=== PATIENT | female | born 1970 | race Caucasian/White ===

== ENCOUNTER 2018-05-13 17:32 | Emergency (ER) | payer OTHER ==
[~2018-05-13] VITALS: Ht 152.4 cm; Wt 72.6 kg
[~2018-05-13 17:32] MED LIST: ADDERALL 10 MG10 MG; ADDERALL 10 MG10 MG PO; AMOXICILLIN 50500 M1 PO; BACTRIM DS TAB1 EACH PO; BACTROBAN CREAM30 GM TOP; BUSPAR15 MG PO; CIPROFLOXACIN500 M1 PO; DESYREL100 MG; DOXYCYCLINE 10100 M1 PO; FLAGYL500 MG PO; FLEXERIL PO; KEFLEX500 MG PO; LITHIUM CARBON300 M3 PO; MACROBID 100 M100 M1 PO; NORCO 5-325 TA1 EACH PO; PENICILLIN VK500 MG PO; PYRIDIUM200 MG PO; STRATTERA PO; VISTARIL 25 MG25 M1 PO; VISTARIL50 MG PO; ZOFRAN ODT4 MG PO
[2018-05-13] MEDS ORDERED: EFFEXOR 5050 MG/1 T1 PO (17:38)
[2018-05-13] MEDS ORDERED: LAMICTAL100 MG PO (17:38)
[2018-05-13 17:54] LABS: URINE BLOOD 3+ (Negative); URINE CLARITY SL CLOUDY; URINE COLOR YELLOW; URINE GLUCOSE-RANDOM NEGATIVE (Negative); URINE KETONES TRACE (Negative); URINE NITRITE-REFLEX NEGATIVE (Negative); URINE PROTEIN 1+ (Negative); URINE SPECIFIC GRAVITY >= 1.030 (1.005-1.030)
[2018-05-13 17:57] LABS: URINE BILIRUBIN 1+ (Negative); URINE LEUKOCYTES-REFLEX 2+ (Negative)
[2018-05-13 18:00] LABS: ICTOTEST (BILI CONFIRMATORY) Negative (Negative)
[2018-05-13 18:02] LABS: MUCUS >6 Heavy strn/LPF (None Seen)
[2018-05-13 18:03] LABS: ABSOLUTE BASOPHILS 0.1 thou/uL (0.0-0.2); ABSOLUTE EOSINOPHILS 0.2 thou/uL (0.0-0.7); ABSOLUTE LYMPHOCYTES 2.3 thou/uL (0.8-5.3); ABSOLUTE MONOCYTES 0.6 thou/uL (0.0-1.2); ABSOLUTE NEUTROPHILS 12.8 thou/uL (1.6-8.1); BASOPHILS 0.5 %; EOSINOPHILS 1.4 %; HEMATOCRIT 39.5 % (37.0-47.0); HEMOGLOBIN 13.2 gm/dL (12.0-15.0); LYMPHOCYTES 14.6 %; MCH 28.7 pg (26.0-34.0); MCHC 33.4 g/dL (28.0-37.0); MCV 86.1 fL (80.0-100.0); MONOCYTES 3.6 %; MPV 7.6 fl. (7.2-11.1); NUCLEATED RBCS 0 /100WBC; PLATELET COUNT* 412 thou/uL (150-400); POLYS 79.9 %; RBC 4.59 mil/uL (4.20-5.00); RDW-CV 14.5 % (10.5-14.5)
[2018-05-13 18:03] LABS: SQUAMOUS 4-10 Moderate /LPF (0-3)
[2018-05-13 18:04] LABS: URINE RBC 3-10 Few /HPF (0-2)
[2018-05-13 18:05] LABS: BACTERIA-REFLEX 1-9 Few /HPF (None Seen); CASTS None Seen /LPF (None Seen); CRYSTALS None Seen /LPF (None Seen)
[2018-05-13 18:07] LABS: ANION GAP 9 mmol/L (7-16); BUN 17 mg/dL (7-18); CALCIUM 9.9 mg/dL (8.5-10.1); CHLORIDE 101 mmol/L (98-107); CO2 24 mmol/L (21-32); CREATININE 0.9 mg/dL (0.6-1.3); GLUCOSE 92 mg/dL (70-99); POTASSIUM 3.7 mmol/L (3.5-5.1); SODIUM 134 mmol/L (136-145)
[2018-05-13 18:14] LABS: ALBUMIN 3.7 g/dL (3.4-5.0); ALKALINE PHOSPHATASE 101 U/L (46-116); SGOT 26 U/L (15-37); SGPT 35 U/L (30-65); TOTAL BILIRUBIN 0.9 mg/dL (<0.1-1.0); TOTAL PROTEIN 8.1 g/dL (6.4-8.2); TROPONIN-I LEVEL <0.06 ng/mL (<0.06)
[2018-05-13] MEDS ORDERED: CIPRO500 MG PO (21:09)
[2018-05-13 23:12] VITALS: BP 107/58
--- NOTE | 2018-05-14 16:39 | EKG ---
[place] [address] ELECTROCARDIOGRAM REPORT Name: LIBRA KAN [id number] Admission: 05/13/18 Attend Phys: Discharge: 05/13/18 Date of : 72 Report #: [id number] THIS REPORT FOR: //name// [facility] ED Test Date: 2018-05-13 Test Time: 18:26:47 Pat Name: LIBRA KAN Department: Room: Gender: F Seam Checker: Ravinder MEDRANO : 1970 Requested By: Shannan Florentino Order Number: [id number] MD: Michael Celis Measurements Intervals [place] Rate: 86 P: 46 VT: 161 QRS: 17 QRSD: 97 T: -4 QT: 364 QTc: 436 Interpretive Statements Sinus rhythm Low voltage, precordial leads Borderline T abnormalities, anterior leads Compared to ECG 11/04/2011 21:27:16 Low QRS voltage now present T-wave abnormality now present Electronically Signed On 05-14-2018 16:39:17 CDT by Michael Celis [email or web address] <ELECTRONICALLY SIGNED> By: Michael Celis MD, [facility] 05/14/18 [id number] Michael Celis MD, [facility] /EPI
== END 2018-05-13 23:14 | disposition still patient (30) ==
LOC: M.ERS 17:32
PROVIDERS: Nurse Practitioner Family
DX: N30.90 Cystitis, unspecified without hematuria (principal); F31.9 Bipolar disorder, unspecified; Z88.2 Allergy status to sulfonamides; Z88.5 Allergy status to narcotic agent